=== PATIENT | male | born 1960 | race Native Hawaiian/Other Pacific Islander ===

== ENCOUNTER 2020-05-06 09:29 | Outpatient (CLI) | payer OTHER | END 2020-05-06 23:16 | disposition home or self-care (01) | LOC: CT 09:29 | PROVIDERS: ATTEND Surgery Vascular Surgery | DX: I70.262 Atherosclerosis of native arteries of extremities with gangrene, left leg (principal) | CPT/HCPCS: 36415; 82565; 84520 ==